=== PATIENT | male | born 1940 | race Caucasian/White ===

== ENCOUNTER 2016-06-23 11:10 | Emergency (ER) | payer MEDICARE ==
[2016-06-23] MEDS ORDERED: Adacel Vial IM ONE ×2 (11:27→11:40)
[2016-06-23] MEDS ORDERED: BACIGUENT PACKET TP ONE (11:27)
[2016-06-23] MEDS ORDERED: Sodium Chloride 0.9% 1000 ML 1,000 ML IV SCH (11:30)
[2016-06-23] MEDS ORDERED: BACIGUENT PACKET ONE (11:40)
[2016-06-23] MEDS ORDERED: Sodium Chloride 0.9% 1000 ML 1,000 ML ONE (11:40)
[2016-06-23 11:46] LABS: BASOPHIL % 0.1 % (0.0-0.4); Granulocytes % 79.3 % (36.0-66.0); Lymphocytes % 10.1 % (24.0-44.0); Mean Cell Volume 99.2 fl (78-100); Mean Corpuscular Hemoglobin 31.4 pg (26-32); Mean Platelet Volume 12.7 fl (6-9.5); Monocytes % 9.5 % (0.0-12.0); Platelet Count 130 K/mm3 (150-450); Red Blood Count 3.82 M/mm3 (4.1-5.6); Red Cell Distribution Width 13.4 % (11.5-14.0); White Blood Count 11.5 K/mm3 (4.0-10.5)
--- NOTE | 2016-06-23 11:50 | ERPHSYRPT ---
- History of Present Illness Time Seen by Provider: 06/23/16 11:23 Source: patient, family Patient Subjective Stated Complaint: pt atates on 06/22/16 around 1300 he fell backwards on deck striking the back of his head. pt c/o pain no back left side of head. ddenies any vomiting or nasuea. Triage Nursing Assessment: pt pale, warm, dry. abrsion noted to posterior right head. abrasion noted with dressing to right knee. denies any neck pain. no deformities noted to neck or back. pt alert and oriented x3. pupils perrl. Physician History: CC: fall Hx: 76 y/o patient of Dr David on xarelto. He fell backwards yesterday and struck head. Pain in head and neck. No N/T/W. He states he blacked out causing him to fall. He has had similar fainting in the past. thinks he might be dehydrated. He drinks jevity. No chest, abd pain. He has a scrape to the knee. Occurred: yesterday Reason for Fall: fainted (blacked out) Allergies/Adverse Reactions: amoxicillin Allergy (Mild, Verified 06/23/16 11:22) Hives Home Medications: Atorvastatin Calcium 1 tab PO HS 11/09/14 [History] Carvedilol [Coreg] 25 mg PO BID 11/09/14 [History] Celecoxib [Celebrex] 200 mg PO DAILY 11/09/14 [History] PANTOPRAZOLE 40 mg Tablet [Protonix 40MG Tablet] 40 mg PO BID 11/09/14 [ History] Rivaroxaban [Xarelto] 15 mg PO QPM 11/09/14 [History] Tamsulosin HCl 0.4 mg [Flomax 0.4 MG] 0.4 mg PO DAILY 11/09/14 [History] Tramadol HCl 50 mg [Ultram 50 mg] 50 mg PO BID PRN 11/09/14 [History] Aspirin 81 mg PO DAILY 06/23/16 [History] Lamotrigine 50 mg PO BID 06/23/16 [History] Memantine HCl 5 mg [Namenda 5 MG] 5 mg PO BID 06/23/16 [History] Olanzapine [Zyprexa] 5 mg PO BID 06/23/16 [History] Hx Tetanus, Diphtheria Vaccination/Date Given: Yes (up to date) Hx Influenza Vaccination/Date Given: Yes (up to date) Hx Pneumococcal Vaccination/Date Given: Yes Immunizations Up to Date: Yes - Review of Systems Constitutional: Malaise, No Fever, No Chills Eyes: No Vision Changes Ears, Nose, & Throat: No Symptoms Respiratory: No Dyspnea Cardiac: Syncope, No Chest Pain Abdominal/Gastrointestinal: No Abdominal Pain, No Nausea, No Vomiting Musculoskeletal: Neck Pain, No Back Pain Skin: No Rash Neurological: Headache All Other Systems: Reviewed and Negative - Past Medical History Pertinent Past Medical History: Yes Neurological History: Dementia ENT History: Cataracts Cardiac History: Coronary Artery Disease, Hypertension Respiratory History: No Pertinent History Endocrine Medical History: Hypothyroidism Musculoskeletal History: Osteoarthritis GI Medical History: GERD History: No Pertinent History Psycho-Social History: Depression Male Reproductive Disorders: No Pertinent History Other Medical History: CABG X4 2007 - Past Surgical History Past Surgical History: Yes Neuro Surgical History: No Pertinent History Cardiac: CABG, Cardiac Catheterization, Internal Defibrillator Gastrointestinal: Appendectomy, Hernia Repair Genitourinary: Other Musculoskeletal: Joint Replacement Male Surgical History: Prostate Surgery, Vasectomy Other Surgical History: left hip replacement, prostate bx, kidney stones removed ,tonsils along with a mass removed 2weeks ago. tonsilectomy with cancer - Social History Smoking Status: Never smoker Exposure to second hand smoke: No Drug Use: none Patient Lives Alone: No - Nursing Vital Signs Nursing Vital Signs: Initial Vital Signs Temperature 97.4 F Temperature Source Oral Pulse Rate 59 Respiratory Rate 16 Blood Pressure [Right Arm] 134/97 Pain Intensity 0 - Javon Coma Score Best Eye Response ([place]): (4) open spontaneously Best Verbal Response ([place]): (5) oriented Best Motor Response ([place]): (6) obeys commands [place] Total: 15 - Physical Exam General Appearance: alert Head Injury: contusions (posterior scalp) Eye Exam: PERRL/EOMI ENT Exam: airway nml Neck Exam: mid-line tenderness Respiratory/Chest Exam: normal breath sounds, No chest tenderness Cardiovascular Exam: normal heart sounds, regular rate/rhythm Gastrointestinal Exam: soft, No tenderness, No distention Extremity Exam: normal range of motion, other (small knee abrasion) Neurologic Exam: alert, oriented x 3, cooperative, sensation nml, No motor deficits Skin Exam: warm, dry, No rash SpO2 Interpretation: normal SpO2: 95 Oxygen Delivery: Room Air - Course Nursing assessment & vital signs reviewed: Yes EKG Interpreted by Me: RATE (pacemaker) Ordered Tests: Active Orders 24 hr Category Date Time Status Cervical Collar Application STAT Care 06/23/16 12:02 Active Clean Catch Urine Specimen STAT Care 06/23/16 11:27 Active EKG-ER Only STAT Care 06/23/16 11:27 Active IV Insertion STAT Care 06/23/16 11:27 Active Pulse Oximetry (ED) STAT Care 06/23/16 11:27 Active Wound Care STAT Care 06/23/16 11:27 Active CERVICAL SPINE WO CONTRAST [CT] Stat Exams 06/23/16 11:27 Taken HEAD WITHOUT CONTRAST [CT] Stat Exams 06/23/16 11:27 Completed CBC W DIFF Stat Lab 06/23/16 11:41 Completed CMP Stat Lab 06/23/16 11:41 Completed PROTIME WITH INR Stat Lab 06/23/16 12:07 Completed PTT Stat Lab 06/23/16 12:07 Completed UA Stat Lab 06/23/16 11:28 Ordered Medication Summary Generic Name Dose Route Start Last Admin Trade Name Freq PRN Reason Stop Dose Admin Sodium Chloride 1,000 mls @ 100 mls/hr 06/23/16 11:30 06/23/16 11:44 Sodium Chloride 0.9% 1000 Ml IV 07/23/16 11:29 100 mls/hr .Q10H ARMANDO Administration Discontinued Medications Generic Name Dose Route Start Last Admin Trade Name Freq PRN Reason Stop Dose Admin Bacitracin 0.9 gm 06/23/16 11:27 06/23/16 11:44 Baciguent Packet TP 06/23/16 11:28 0.9 gm STAT ONE Administration Bacitracin Confirm 06/23/16 11:40 Baciguent Packet Administered 06/23/16 11:41 Dose 1 gm .ROUTE .STK-MED ONE Diphtheria/Tetanus/Acell Pertussis 0.5 ml 06/23/16 11:27 06/23/16 11:44 Adacel Vial IM 06/23/16 11:28 0.5 ml .ONCE ONE Administration Diphtheria/Tetanus/Acell Pertussis Confirm 06/23/16 11:40 Adacel Vial Administered 06/23/16 11:41 Dose 0.5 ml IM .STK-MED ONE Sodium Chloride Confirm 06/23/16 11:40 Sodium Chloride 0.9% 1000 Ml Administered 06/23/16 11:41 Dose 1,000 mls @ ud .ROUTE .STK-MED ONE Lab/Rad Data: Laboratory Result Diagrams 06/23/16 11:41 06/23/16 11:41 Laboratory Results 06/23/16 06/23/16 06/23/16 Range/Units 12:07 11:41 11:41 WBC 11.5 H (4.0-10.5) K/mm3 RBC 3.82 L (4.1-5.6) M/mm3 Hgb 12.0 L (12.5-18.0) gm/dl Hct 37.9 L (42-50) % MCV 99.2 (78-100) fl MCH 31.4 (26-32) pg MCHC 31.7 L (32-36) g/dl RDW 13.4 (11.5-14.0) % Plt Count 130 L (150-450) K/mm3 MPV 12.7 H (6-9.5) fl Gran % 79.3 H (36.0-66.0) % Lymphocytes % 10.1 L (24.0-44.0) % Monocytes % 9.5 (0.0-12.0) % Eosinophils % 1.0 (0.00-5.0) % Basophils % 0.1 (0.0-0.4) % Basophils # 0.01 (0-0.4) INR 1.83 (0.8-3.0) PTT 37.0 H (24.1-36.1) SECONDS Sodium 136 (136-145) mEq/L Potassium 4.0 (3.5-5.1) mEq/L Chloride 100 (98-107) mEq/L Carbon Dioxide 30.2 (21-32) mEq/L Anion Gap 10.0 (5-15) MEQ/L BUN 17 (9-20) mg/dL Creatinine 1.19 (0.55-1.30) mg/dl Estimated GFR > 60 ML/MIN Glucose 118 H (70-110) MG/DL Calcium 9.0 (8.5-10.1) mg/dL Total Bilirubin 1.1 H (0.2-1.0) mg/dL AST 19 (15-37) U/L ALT 18 (12-78) U/L Alkaline Phosphatase 57 (46-116) U/L Serum Total Protein 7.1 (6.4-8.2) gm/dL Albumin 3.1 L (3.4-5.0) g/dL - Progress Progress Note: 06/23/16 12:23 CT head: no bleed CT cervical: New nondisplaced type 3 odontoid fracture. C-collar was placed on arrival. CT shows fx. He chose [facility]. Called Dr Aguilar and will transfer to [facility] under trauma service. Pt advised lie flat with collar. He has intact motion all extremities without focal deficit. Counseled pt/family regarding: lab results, diagnosis, need for follow-up, rad results - Departure Time of Disposition: 12:24 Departure Disposition: Transfer Clinical Impression: Fall, Odontoid fracture with type III morphology, Anticoagulated, Syncope Condition: Fair Critical Care Time: No Referrals: BC DAVID MD [Primary Care Provider] -
--- NOTE | 2016-06-23 12:07 | XRAY ---
Indication: Posterior head injury following fall. Multiple contiguous axial images obtained through the head without contrast. Comparison: December 26, 2006. Stable age-appropriate global atrophy and minimal periventricular degenerative micro-ischemia bilaterally. No acute intracranial hemorrhage, abnormal extra-axial fluid collection, or mass effect. Fourth ventricle is midline without hydrocephalus. Bony calvarium intact. There is now partial opacification of both mastoid air cells. Visualized paranasal sinuses clear. Impression: Nonacute senile brain. New partial opacification of both mastoid air cells presumed inflammatory. Comment: Telephone report given to the ordering clinician at 1202 hrs. on June 23, 2016. CT DI 48.60
[2016-06-23 12:12] LABS: INR 1.83 (0.8-3.0); PROTIME 20.1 SECONDS (8.83-12.87)
[2016-06-23 12:16] LABS: ALBUMIN 3.1 g/dL (3.4-5.0); ALKALINE PHOSPHATASE 57 U/L (46-116); BILIRUBIN,TOTAL 1.1 mg/dL (0.2-1.0); BLOOD UREA NITROGEN 17 mg/dL (9-20); CHLORIDE 100 mEq/L (98-107); Carbon Dioxide 30.2 mEq/L (21-32); Glucose 118 MG/DL (70-110); SGOT/AST 19 U/L (15-37); SGPT/ALT 18 U/L (12-78); SODIUM 136 mEq/L (136-145); Total Protein 7.1 gm/dL (6.4-8.2)
--- NOTE | 2016-06-23 12:26 | XRAY ---
Indication: Neck pain. Posterior head injury following fall. Multiple contiguous axial images obtained through the cervical spine. Sagittal and coronal reformatted images obtained. Comparison: August 09, 2015. Axial images demonstrates new minimally displaced type III odontoid fracture. Fracture line extends into the left lateral body and also extends to the left pedicle and left transverse foramen. No spinal canal encroachment/stenosis. No other acute fracture, suspicious bony lesions, or spinal canal stenosis stenosis. Stable multilevel degenerative endplate spurring again greatest at the C6-T1 levels. Also stable multilevel bilateral degenerative facet hypertrophy left greater than right and atlantoaxial degenerative changes. Sagittal and coronal reformatted images again demonstrates lordotic straightening, C6-C7 disc space loss, and C6-C7 vacuum disc phenomena. No acute compression fracture, subluxation, or jumped facet. Normal-appearing craniocervical junction. Visualized noncontrasted soft tissues again demonstrates moderate carotid and minimal distal vertebral artery calcifications bilaterally. CT head reported separately. Impression: 1. New minimally displaced type III odontoid fracture as detailed. No spinal canal encroachment. 2. Stable multilevel degenerative changes and cervical lordotic straightening. Comment: Telephone report given to the ordering clinician at 1202 hrs. on June 23, 2016. CT DI 51.14
[2016-06-23 13:03] VITALS: BP 122/70; PULSE 62; O2SAT 96
== END 2016-06-23 13:03 | disposition short-term general hospital (02) ==
LOC: ED 11:10
DX: S12.121A Other nondisplaced dens fracture, initial encounter for closed fracture (principal); S80.211A Abrasion, right knee, initial encounter; Z79.899 Other long term (current) drug therapy; Z79.01 Long term (current) use of anticoagulants; W01.0XXA Fall on same level from slipping, tripping and stumbling without subsequent striking against object, initial encounter; I25.10 Atherosclerotic heart disease of native coronary artery without angina pectoris; I10 Essential (primary) hypertension; E03.9 Hypothyroidism, unspecified
CPT/HCPCS: 96372; 99285; 36000; 96360; 93005; 85610; 85730; 36415; 85025; 80053; 70450; 72125; A9270; 90471; 90715; L0120